=== PATIENT | male | born 1955 | race Hispanic/Latino ===

== ENCOUNTER 2017-06-29 10:26 | Outpatient (CLI) | payer OTHER ==
--- NOTE | 2017-06-29 12:11 | ULT ---
ABDOMEN ULTRASOUND: HISTORY: Abdominal pain. COMPARISON: CT abdomen and pelvis 10/24/16. FINDINGS: Visualized portions of the pancreas are unremarkable. Diffuse increased hepatic echotexture. The pr oximal aorta is unremarkable. There is a hypoechoic mass with acoustic enhancement in the left lobe of the liver measuring 1.8 x 0. 9 x 1.5 cm. This can be seen on the prior CT examination which was characterized as hemangioma. Com mon bile duct measures 9 mm. Prior cholecystectomy. The right kidney measures 12 x 4.6 x 5.1 cm without mass, hydronephrosis, or abnormal calcifications. The left kidney measures 10.9 x 4.7 x 7 cm without mass, hydronephrosis, or abnormal calcifications . The spleen measures 10.7 x 4.3 x 4.9 cm. IMPRESSION: 1. Diffusely increased hepatic echotexture suggesting steatosis. 2. Relatively hypoechoic mass left lobe of the liver corresponding to what was characterized as a he mangioma on the prior CT examination of 10/24/16. 3. [place] effect of the extrahepatic biliary system. 4. The possibility of some small nonobstructing calculi inferior pole right kidney. POS: JOELLE
== END 2017-06-29 10:27 | disposition home or self-care (01) ==
LOC: ULT 10:26
PROVIDERS: ATTEND Family Medicine
DX: R10.9 Unspecified abdominal pain (principal); K76.89 Other specified diseases of liver
CPT/HCPCS: 76700